=== PATIENT | male | born 1965 | race Caucasian/White ===

== ENCOUNTER 2022-04-25 13:58 | Outpatient (CLI) | payer OTHER, SELFPAY ==
--- NOTE | ~2022-04-25 | XR_ITS ---
XR foot LT standing 2V DATE: 04/25/2022 15:17 INDICATION: Rheumatoid arthritis TECHNIQUE: Standing AP and lateral views COMPARISON: None FINDINGS: Small erosion at the medial articular margin of the base of the distal phalanx of the secon d digit. Mild osteoarthritis at the first metatarsophalangeal joint. Slight plantar calcaneal enthesopathy. No fracture or dislocation, periosteal reaction or bone destruction. IMPRESSION: Small erosion at the medial articular margin of the base of the distal phalanx of the sec ond digit Mild osteoarthritis at the first metatarsophalangeal joint Reviewed, dictated and finalized at location B. IMPRESSION: Small erosion at the medial articular margin of the base of the dis rabia phalanx of the second digit Mild osteoarthritis at the first metatarsophalangeal joint
--- NOTE | ~2022-04-25 | XR_ITS ---
XR foot RT standing 2V DATE: 04/25/2022 15:17 INDICATION: Rheumatoid arthritis TECHNIQUE: Standing AP and lateral views COMPARISON: None FINDINGS: There is moderately prominent osteoarthritis at the first metatarsophalangeal joint. No fr acture or dislocation, periosteal reaction or bone destruction. IMPRESSION: Osteoarthritis at first metatarsophalangeal joint Reviewed, dictated and finalized at location B.
--- NOTE | ~2022-04-25 | XR_ITS ---
XR hand BI arthritis min 3V DATE: 04/25/2022 15:17 INDICATION: Osteoarthritis TECHNIQUE: 4 views of left hand, 5 views of right hand. COMPARISON: None FINDINGS: Left hand: Small chronic bony ossicle at the lateral waist of the navicular bone. Benign cyst of the head of the first metacarpal bone and occasional small carpal bone cysts. No fracture or dislocation, periosteal reaction or bone destruction. No erosive change or chondrocalc inosis. Right hand: There is joint space narrowing and spurring at the second metacarpophalangeal joint. Ther e is mild osteoarthritis at the first metacarpophalangeal joint. The tuft of the distal phalanx of the third digit is largely absent. No recent fracture or dislocation, periosteal reaction or bone destruction. No erosive change or sudheer drocalcinosis. IMPRESSION: Mild osteoarthritis Reviewed, dictated and finalized at location B. IMPRESSION: Mild osteoarthritis
[2022-04-25 15:40] LABS: Hematocrit 42.5 % (42.0-52.0); Hemoglobin 14.5 g/dL (14.0-18.0); Mean Corpuscular HGB Conc 34.1 g/dl (32-36); Mean Corpuscular Hemoglobin 35.5 pg (26-34); Mean Corpuscular Volume 103.9 fl (80-100); Mean Platelet Volume 9.2 fl (7.4-10.4); Platelet Count Result 216 k/mm3 (150-375); Red Blood Count 4.09 M/mm3 (4.6-6.20); Red Cell Distribution Width 12.8 % (11.5-14.5); White Blood Count 5.4 K/mm3 (4.5-10.0)
[2022-04-25 15:48] LABS: Rheumatoid Factor 76.5 IU/ML (<12)
[2022-04-25 15:49] LABS: Alanine Aminotransferase 34 U/L (6-50); Albumin Level 4.6 g/dL (3.5-5.1); Alkaline Phosphatase 71 U/L (38-126); Anion Gap 10 mmol/L (8-16); Aspartate Amino Transferase 36 U/L (17-59); Bilirubin,Total 1.1 mg/dL (0.2-1.3); Blood Urea Nitrogen 15 mg/dL (9-20); CRP 0.9 mg/dL (<1.0); Calcium 9.7 mg/dL (8.4-10.2); Carbon Dioxide 26 mmol/L (22-30); Chloride 101 mmol/L (98-107); Estimated Glomerular Filt Rate > 60; Glucose 91 mg/dL (65-110); Potassium 3.7 mmol/L (3.4-5.0); Sodium 137 mmol/L (137-145)
[2022-04-25 16:36] LABS: Add Urine Microscopic? YES; Appearance Urine Clear (Clear); Bilirubin Urine 1+ (Negative); Blood Urine Negative (Negative); Color Urine Yellow (Yellow); Glucose Urine UA Negative (Negative); Ketones Urine Negative (Negative); Leukocyte Esterase Ur Negative LEU/UL (Negative); Nitrate Urine Negative (Negative); Protein Urine Negative (Negative); Specific Grav Ur >= 1.030 (1.001-1.035); Urobilinogen Urine 0.2 mg/dL (<2.0)
[2022-04-25 16:41] LABS: Calcium Oxalate Crystals Urine Present /hpf; Mucus Urine Rare /lpf; RBC Urine 0-2 /hpf (0-2); WBC Urine 0-3 /hpf
[2022-04-25 16:59] LABS: Hepatitis B Surface Antigen Negative (Negative)
[2022-04-25 17:17] LABS: Hepatitis B Surface Anti Res Negative; Hepatitis C Virus Antibody Negative (Negative)
[2022-04-25 17:20] LABS: Erythrocyte Sedimentation Rate 12 mm/hr (0-20)
[2022-04-27 13:36] LABS: NIL 0.01 IU/mL; Quantiferon TB Plus, 1T NEGATIVE (NEGATIVE); TB2-NIL 0.01 IU/mL
[2022-04-29 22:41] LABS: Anti Cyclic Citrullinated Pept >250 Units (<20)
== END 2022-04-25 13:59 | disposition home or self-care (01) ==
LOC: ANHLAB 14:01
PROVIDERS: PCP Internal Medicine; Visit Provider Internal Medicine
DX: M05.79 Rheumatoid arthritis with rheumatoid factor of multiple sites without organ or systems involvement (principal); M19.072 Primary osteoarthritis, left ankle and foot; M19.041 Primary osteoarthritis, right hand; M19.042 Primary osteoarthritis, left hand; M19.071 Primary osteoarthritis, right ankle and foot
CPT/HCPCS: 36415; 73130; 73620; 80053; 81001; 85027; 85652; 86038; 86140; 86200; 86430; 86480; 86706; 86803; 87340

== ENCOUNTER 2022-08-26 17:25 | Emergency (ER) | payer OTHER, SELFPAY ==
--- NOTE | ~2022-08-26 | XR_ITS ---
EXAM: XR finger 4th RT min 2V DATE: 08/26/2022 17:55 HISTORY: injury . COMPARISON: None available. FINDINGS: The lateral view is limited by overlapping structures. Normal mineralization. No fracture o r dislocation. No lytic or blastic lesion. Mild scattered degenerative changes. No erosion or periost eal change. Soft tissues within normal limits. IMPRESSION: Limited lateral view. Within that constraint, no definite acute osseous finding in the ri ght fourth digit. Reviewed, dictated and finalized at location K. [employer] IMPRESSION: Limited lateral view. Within that constraint, no definite acute oss eous finding in the right fourth digit.
[2022-08-26 17:41] VITALS: BP 170/97; PULSE 60; RESP 16; TEMP 37.2; O2SAT 98
--- NOTE | 2022-08-26 17:54 | ED.UPPEXIN ---
HPI - Extremity Injury (Upper) General Chief Complaint: Extremity Injury, Upper Stated Complaint: Right ring finger smashed History of Present Illness HPI narrative: patient presents for evaluation of right ring finger. Patient smashed his finger earlier today with a board at work. Related Data Home Medications Medication Instructions Recorded Confirmed alprazolam 0.5 mg tablet 0.5 mg PO DAILY 04/25/22 08/26/22 levothyroxine 112 mcg capsule 112 mcg PO DAILY 04/25/22 08/26/22 Allergies Allergy/AdvReac Type Severity Reaction Status Date / Time No Known Allergies Allergy Verified 08/26/22 17:41 Review of Systems Review of Systems: CONSTITUTIONAL: Denies fever, chills, or sweats. EYES: Denies visual changes, redness, or discharge. ENT: Denies rhinorrhea, congestion, sore throat, or otalgia. CARDIOVASCULAR: Denies chest pain, palpitations, or edema. RESPIRATORY: Denies cough or dyspnea. GASTROINTESTINAL: Denies abdominal pain, nausea, vomiting, or diarrhea. GENITOURINARY: Denies dysuria or hematuria. SKIN: Denies rash or itching. MUSCULOSKELETAL: Denies back pain, joint pain, or myalgia. NEUROLOGIC: Denies headache, numbness, or weakness. PSYCHIATRIC: Denies anxiety or depression. [facility] Past Medical History Medical History Arthritis Bilateral hand pain Rheumatoid arthritis with rheumatoid factor of multiple sites without organ or systems involvement Thyroid disorder Social History Social History Smoking status: Never smoker Alcohol intake: current Comments At time of signature, agree with nursing past medical, surgical, social and family history. There is no relevant family history pertinent to the presenting complaint Exam Narrative: GENERAL: Well-appearing, well-nourished, and in no acute distress. HEAD: Normocephalic, atraumatic. EYES: PERRLA and EOMI. ENT: Nares clear, no rhinorrhea or epistaxis. Mucous membranes moist. NECK: Supple. CHEST: Clear to auscultation. No respiratory distress. HEART: Regular rate and rhythm. No murmur heard. Normal peripheral pulses. ABDOMEN: Soft, nontender, nondistended, normal active bowel sounds. EXTREMITIES: Normal range of motion. No edema.HAND EXAM - Skin intact, no laceration, no swelling, no erythema, normal digit cascade with flexion of fingers, median nerve, ulnar nerve, radial nerve is intact. Normal sensation of each side of each finger, can perform `ok? sign, `cross over finger test of index and middle fingers? and `thumbs up? sign, normal thumb opposition, no scissoring. good capillary refill and radial pulse. normal flexion and extension of fingers and wrist. normal supination at wrist. Normal forearm and elbow exam. SKIN: Warm, dry, no rash. NEURO: No focal deficits. Alert and oriented x3. Nicole Coma Scale Eye Opening: Spontaneous 4 Colwell Coma Scale Motor: Obeys Commands 6 Colwell Coma Scale Verbal: Oriented 5 Nicole Coma Scale Total 15 Course Course Level of Care: Express Care Visit Vital Signs Vital signs: Vital Signs Temperature 37.2 C 08/26/22 17:41 Pulse Rate 60 08/26/22 17:41 Respiratory Rate 16 08/26/22 17:41 Blood Pressure 170/97 H 08/26/22 17:41 Pulse Oximetry 98 08/26/22 17:41 Oxygen Delivery Room Air 08/26/22 17:41 Temperature 37.2 C 08/26/22 17:41 Pulse Rate 60 08/26/22 17:41 Respiratory Rate 16 08/26/22 17:41 Blood Pressure 170/97 H 08/26/22 17:41 Pulse Oximetry 98 08/26/22 17:41 Oxygen Delivery Room Air 08/26/22 17:41 Please MARTINA schedule a followup visit with your personal physician for further evaluation and treatment. Including recheck and discussion of your blood pressure. If your symptoms persist, change or worsen significantly before you can contact your personal physician then please, without delay, go to the emergency department for further evaluation DISCUSSED WITH PATIENT,
== END 2022-08-26 18:16 | disposition home or self-care (01) ==
PROVIDERS: Emergency Provider Nurse Practitioner Family; PCP Internal Medicine
DX: S63.614A Unspecified sprain of right ring finger, initial encounter (principal); X58.XXXA Exposure to other specified factors, initial encounter; Y99.0 Civilian activity done for income or pay; M19.90 Unspecified osteoarthritis, unspecified site; M05.9 Rheumatoid arthritis with rheumatoid factor, unspecified; E07.9 Disorder of thyroid, unspecified
CPT/HCPCS: 73140; 99213; G0463

== ENCOUNTER 2024-01-30 14:47 | Emergency (ER) | payer OTHER, SELFPAY ==
[2024-01-30 14:55] VITALS: BP 138/84; PULSE 65; RESP 14; TEMP 37.3; O2SAT 100
--- NOTE | 2024-01-30 15:35 | ED.EYEPROB ---
HPI - Eye Problem General Chief complaint: Eye Problems Stated complaint: left eye Time Seen by Provider: 01/30/24 15:20 Source: patient, RN notes reviewed and old records reviewed Mode of arrival: ambulatory Limitations: no limitations History of Present Illness HPI Narrative: 58 year old male presents to [facility] accompanied by with complaints of redness and excessive watering and irritation to his left eye since 0600 this morning. Patient denies any trauma to his left eye, denies feeling of foreign body to his left eye, movement of eye is unimpaired with clear watering drainage from eye noted. Patient also has clear nasal drainage from his left nasal passage, denies any known fevers, sore throat,ear pain ,or cough. MD chief complaint: eye redness and other (watering) Onset (ago): hour(s) (this morning at 0600) Onset description: awoke with symptoms Location: left eye Eye Symptoms: redness and other (clear watering drainage) Severity scale (1-10): 4 If Pain, Quality: other (irritation) Related Data Home Medications Medication Instructions Recorded Confirmed levothyroxine 112 mcg capsule 112 mcg PO DAILY 04/25/22 01/30/24 Allergies Allergy/AdvReac Type Severity Reaction Status Date / Time No Known Allergies Allergy Verified 01/30/24 15:03 Review of Systems Review of Systems: CONSTITUTIONAL: Denies fever, chills, or sweats. EYES: Denies visual changes. Reports redness,, irritation,clear watering discharge, denies any change in vision or sharp pain to his left eye ENT:Reports rhinorrhea left nasal passage,no feelings of congestion, sore throat, or otalgia. CARDIOVASCULAR: Denies chest pain, palpitations, or edema. RESPIRATORY: Denies cough or dyspnea. SKIN: Denies rash or itching. NEUROLOGIC: Denies headache All systems reviewed & are unremarkable except as noted in HPI and below PMFSH Past Medical History Medical History Arthritis Bilateral hand pain Rheumatoid arthritis with rheumatoid factor of multiple sites without organ or systems involvement Thyroid disorder Surgical History Surgical History No pertinent past surgical history Family History Family History Other Asthma Heart disease Hypertension Social History Social History Smoking status: Never smoker Alcohol intake: current Substance use: never Substance use type: does not use Lack of Transportation: No Lack of Food: Never True Current Housing: I Have Housing Concerned About Future Housing: No Difficulty Paying Gas/Electric Bills: No Difficulty Paying for Meds: No Currently Unemployed: No Education: Decline to Answer Difficulty w/ Childcare or Family Care: No Living arrangements: with family Gender identity (if verbalized by the patient): Male Comments At time of signature, agree with nursing past medical, surgical, social and family history. There is no relevant family history pertinent to the presenting complaint Exam Narrative: GENERAL: Well-appearing, well-nourished, and in no acute distress. HEAD: Normocephalic, atraumatic. EYES: PERRLA and EOMI. Upper and lower eyelids unremarkable. No periorbital cellulitis noted. Sclera and conjunctivae injected left eye with excessive watering,denies any injury or feelings of foreign body, visual acuity 20/20 bilaterally without correction ENT: Nares clear, nclear rhinorrhea left nasal passage, no epistaxis. Mucous membranes moist TM's normal throat pink with no swelling or redness NECK: Supple. no lymphadenopathy CHEST: Clear to auscultation. No respiratory distress.SAO2 100% on room air HEART: Regular rate and rhythm. No murmur heard. Normal peripheral pulses. SKIN: Warm, dry, no rash. NEURO: No focal deficits. Alert and orient
== END 2024-01-30 15:47 | disposition home or self-care (01) ==
PROVIDERS: Emergency Provider Registered Nurse; PCP Internal Medicine
DX: H10.32 Unspecified acute conjunctivitis, left eye (principal); M19.90 Unspecified osteoarthritis, unspecified site; M05.79 Rheumatoid arthritis with rheumatoid factor of multiple sites without organ or systems involvement; E07.9 Disorder of thyroid, unspecified
CPT/HCPCS: 99213; G0463